=== PATIENT | male | born 1950 | race Two or more races ===

== ENCOUNTER 2020-07-09 16:54 | Inpatient (IN) | payer MEDICARE, OTHER ==
[~2020-07-09] VITALS: Ht 157.5 cm; Wt 81.6 kg
[2020-07-09 17:33] LABS: *BILIRUBIN,URIN NEGATIVE (NEGATIVE); *BLOOD, URINE NEGATIVE (NEGATIVE); *CLARITY,URINE SLIGHTLY CLOUDY (CLEAR); *COLOR,URINE YELLOW (YELLOW); *KETONES,URINE TRACE (NEGATIVE); *UROBILINOGEN,URINE 0.2 E.U./dl (NORMAL); LEUKOCYTE ESTERASE ,URINE 1+ (NEGATIVE); NITRITE, URINE NEGATIVE (NEGATIVE); PH,URINE 5.5 (5.0-8.0); UGLUCOSE NEGATIVE (NEGATIVE)
[2020-07-09 17:39] LABS: *AMPHETAMINE, URINE NEGATIVE (NEGATIVE); *CANNABINOID, URINE NEGATIVE (NEGATIVE); *COCCAINE, URINE NEGATIVE (NEGATIVE); *OPIATE, URINE NEGATIVE (NEGATIVE); *PHENCYCLIDINE SCREEN,URINE NEGATIVE (NEGATIVE)
[2020-07-09] MEDS ORDERED: CHOL10002 PO (17:42)
[2020-07-09] MEDS ORDERED: ACET-73 PO (17:42)
[2020-07-09] MEDS ORDERED: MELA3TAB41 PO (17:42)
[2020-07-09] MEDS ORDERED: ASCO500C18 PO (17:42)
[2020-07-09] MEDS ORDERED: ACET-2154 PO (17:42)
[2020-07-09] MEDS ORDERED: METF-442 PO (17:42)
[2020-07-09] MEDS ORDERED: DOCU100C36 PO (17:42)
[2020-07-09 17:53] LABS: BASOPHILS % (AUTO) 0.6 % (0.0-2.0); EOSINOPHILS # (AUTO) 0.2 K/uL (0.0-0.7); EOSINOPHILS % (AUTO) 2.1 % (0.0-7.0); HEMOGLOBIN 14.6 g/dL (12.5-16.3); LYMPHOCYTES % (AUTO) 22.5 % (20.5-51.5); MEAN CORPUSCULAR HEMOGLOBIN 29.6 uug (23.8-33.4); MEAN CORPUSCULAR HGB CONC 34 g/dL (32.5-36.3); MEAN CORPUSCULAR VOLUME 86.9 fL (73.0-96.2); MONOCYTES # (AUTO) 0.8 K/uL (2.0-10.0); MONOCYTES % (AUTO) 8.7 % (0.0-11.0); NEUTROPHILS # (AUTO) 5.8 K/uL (1.8-8.9); NEUTROPHILS % (AUTO) 66.1 % (38.5-71.5); PLATELET COUNT (AUTO) 280 K/uL (152-348); RED BLOOD CELL COUNT(AUTO) 4.95 MIL/uL (4.06-5.63); WHITE BLOOD COUNT (AUTO) 8.8 K/uL (3.6-10.2)
[2020-07-09 18:02] LABS: CARBON DIOXIDE 25 mmol/L (21-32); CHLORIDE 105 mmol/L (98-107); CREATININE 1.1 mg/dL (0.6-1.3); GLUCOSE 123 mg/dL (74-106); POTASSIUM 3.9 mmol/L (3.5-5.1); UREA NITROGEN, BLOOD 21 mg/dL (7-18)
[2020-07-09 18:08] LABS: ALANINE AMINOTRANSFERASE 18 U/L (16-63); ALKALINE PHOSPHATASE 78 U/L (50-136); ASPARTATE AMINOTRANSFERASE 11 U/L (15-37); BILIRUBIN,DIRECT 0.1 mg/dL (0.0-0.2); BILIRUBIN,TOTAL 0.3 mg/dL (0.2-1.0); TOTAL PROTEIN, SERUM 6.9 g/dL (6.4-8.2)
--- NOTE | 2020-07-09 18:10 | NUR ---
Pt resting in guradger and watching TV. Per pt is medically clear for psych eval. Abbey Swenson notified via telephone.
[2020-07-09 18:12] LABS: ETHANOL < 3 MG/DL (0-0)
[2020-07-09 18:14] LABS: ACETAMINOPHEN < 2.0 ug/mL (10-30)
--- NOTE | 2020-07-09 18:14 | NUR ---
Per Abbey call Art for eval once the COVID-19 results are back.
--- NOTE | 2020-07-09 18:18 | NUR ---
Pt's COVID results are negative, Art contacted via telephone, states he will come in as soon as he can.
--- NOTE | 2020-07-09 18:45 | NUR ---
Pt attempted to elope, code yung called. Pt was escorted back to room 5 by security. Art is here for psych eval.
--- NOTE | 2020-07-09 20:10 | NUR ---
Pt. admitted to MHU room 140A, Dx GD on a 5150 hold, under care of Dr. Jain and Dr. Howell. Belongs List completed. Report given to U nurse Marii.
[2020-07-09 20:37] LABS: BACTERIA,URINE FEW /HPF (NONE SEEN); RBC,URINE 0-3 /HPF (0-3); SQUAMOUS EPITHELIAL CELL,UR NONE SEEN /HPF (NONE SEEN); WBC,URINE 0-3 /HPF (0-3)
[2020-07-09 20:38] LABS: CALCIUM OXALATE CRYSTALS,UR FEW /HPF (NONE SEEN); URINE AMORPHOUS URATE MODERATE /HPF
[2020-07-09] MEDS ORDERED: MAGNESIUM HYDROXIDE 30 ML LIQUID UDC PO PRN (21:00)
[2020-07-09] MEDS ORDERED: MAG HYDROX/AL HYDROX/SIMETH 30 ML LIQUID UDC PO PRN (21:00)
[2020-07-09] MEDS ORDERED: BLOOD SUGAR DIAGNOSTIC 1 EACH STRIP VI ONE (21:00)
--- NOTE | 2020-07-09 21:30 | NUR ---
gps ADMISSION NOTE: AT APPROX. 2009, ADMITTED 70 YEARS OLD MALE FROM [facility] [place] TO [facility] MHU ON A 5150 FOR GD. ACCORDING TO THE HOLD, PATIENT WAS BIB AMBULANCE TO [facility] ER D/T AGGRESSIVE AND AGITATIVE BX. . PATIENT STRIKING OUT, NON COMPLIANT WITH CARE, IMPAIRED JUDGMENT AND POOR INSIGHT AND IMPULSE CONTROL, PT IS UNABLE TO PROVIDE FOR HIMSELF. HIS HOLD WILL BE UP ON AT 1920. UPON ADMISSION, PATIENT IS NOTED A/O X 1. ABLE TO AMBULATE WITH STEADY GAIT. PATIENT REFLECTS WHAT IS WRITTEN IN THE HOLD. POOR INSIGHT AND JUDGMENT IS NOTED INTO HIS ADMISSION TO MHU. PATIENT IS BRAZILIAN SPEAKER. AMHARIC IS LIMITED. HE WAS UNABLE TO SIGN ADMISSION PAPERS. SKIN ASSESSMENT WAS LIMITED D/T PATIENT'S POOR COMPLIANT WITH ASSESSMENT; HOWEVER, APPEARS INTACT EXCEPT FOR DRY SKIN IN BOTH LEGS AND A SMALL ABRASION ON HIS LEFT FOREARM OF APPROX 0.5CM IN DIAMETER. PATIENT WAS GIVEN, IN BRAZILIAN, THE PATIENT'S RIGHT FOR MENTAL HEALTH BOOKLET. ADVISEMENT WAS GIVEN TO PATIENT WELL. HE WAS ALSO INTRODUCE TO RULES AND EXPECTATION IN MHU. PATIENT IS UNDER THE CARE OF SR TAYLOR AND DR SCHAEFER. WILL CONTINUE TO MONITOR Q15 MIN CHECKS.
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
[2020-07-10] MEDS ORDERED: LORAZEPAM 2 MG/1 ML VIAL IM ONE (09:30)
[2020-07-10] MEDS ORDERED: HALOPERIDOL LACTATE 5 MG/1 ML VIAL IM ONE (09:30)
[2020-07-10] MEDS ORDERED: diphenhydrAMINE 50 MG/1 ML VIAL IM ONE (09:30)
--- NOTE | 2020-07-10 10:13 | NUR ---
Received orders for Haldol 5 mg, Ativan 1 mg, Benadryl 25 mg IM once. Security called for assistance. IM administered with no adverse reaction. Patient was educated about reason for medication but he is unable to participate in education. he is alert and oriented to name only. he was cursing at staff during IM administration. Patient remained laying in bed, bed in low and locked position with bed alarm on. patient's environment assessed for safety.
--- NOTE | 2020-07-10 10:28 | NUR ---
CHIQUI Initial Discharge Plan: Patient currently resides at [facility], [facility] ([phone]). Spoke with Farida at the facility who confirmed patient is welcome back upon discharge. Patient's daughter, Rola stated she wants patient to return to [facility]. CHIQUI will continue to work with patient, family, and MD to ensure a safe and proper discharge plan.
--- NOTE | 2020-07-10 10:28 | NUR ---
CHIQUI Family Contact: CHIQUI spoke with patient's daughterRola ([phone]) and discussed treatment and initial discharge plan.
--- NOTE | 2020-07-10 10:30 | NUR ---
Firearms Report: Sheet Metal Shop Foreman completed and submitted a DOJ firearms report for 5150 grave disability certification. A copy of report has been placed in patient chart.
--- NOTE | 2020-07-10 12:12 | NUR ---
patient sleeping in his assigned bed. bed is in low and locked position. respirations are even and unlabored.
[2020-07-10] MEDS ORDERED: ACETAMINOPHEN ES 500 MG TABLET PO SCH (12:45)
[2020-07-10] MEDS ORDERED: ACETAMINOPHEN 325 MG TABLET PO SCH (12:45)
--- NOTE | 2020-07-10 13:00 | NUR ---
FÉLIX UR NOTE: Authorization# [id number] FÉLIX spoke with Corin Blankenship power manager (ph: [phone] fax [phone]) regarding patient's admission. FÉLIX stated that once the psychiatrist meets with the patient Félix will fax the H&P, Medication and Labs, and any progress notes tomorrow morning.
[2020-07-10] MEDS: OLANZAPINE ZYDIS 5 MG TAB.RAPDIS PO SCH (16:45)
--- NOTE | 2020-07-10 16:45 | NUR ---
patient continues to be asleep in assigned bed. respirations are even and unlabored. no signs of respiratory distress noted. 1700 Zyprexa Zydis 2.5 mg PO held.
[2020-07-10] MEDS: METFORMIN HCL 500 MG TABLET PO SCH (17:39)
--- NOTE | 2020-07-10 17:39 | NUR ---
patient is asleep in his assigned bed. respirations are even and unlabored. no signs of respiratory distress noted. 1800 metformin 1000 mg PO held.
[2020-07-10] MEDS: CEphaleXIN 500 MG CAPSULE PO SCH (21:00)
[2020-07-10] MEDS: DIVALPROEX SPRINKLE 125 MG CAP.SPRINK PO SCH (21:00)
[2020-07-11] MEDS: CLONAZEPAM 0.5 MG TABLET PO PRN ×2 (01:30→20:08)
--- NOTE | 2020-07-11 01:36 | NUR ---
GPS: Pt.is anxious at this time. Alert to self only. Confused,disoriented. Reality re-orientation provided. Incontinence care was provided. Quiet environment provided to facilitate sleep. Denied pain when asked. Klonopin 0.5mg given PO for anxiety. Will monitor effectiveness. No aggressive behavior noted at this time. Fall precautions observed.
[2020-07-11 07:46] VITALS: BP 115/68
[2020-07-11] MEDS: CHOLECALCIFEROL 1,000 UNIT TABLET PO SCH (08:45)
[2020-07-11] MEDS: CEphaleXIN 500 MG CAPSULE PO SCH ×2 (08:46→20:08)
[2020-07-11] MEDS: ASCORBIC ACID 500 MG TABLET PO SCH (08:46)
[2020-07-11] MEDS: DIVALPROEX SPRINKLE 125 MG CAP.SPRINK PO SCH ×2 (08:46→20:08)
[2020-07-11] MEDS: DOCUSATE SODIUM 100 MG CAPSULE PO SCH (08:46)
[2020-07-11] MEDS: METFORMIN HCL 500 MG TABLET PO SCH ×2 (08:46→17:50)
[2020-07-11] MEDS: OLANZAPINE ZYDIS 5 MG TAB.RAPDIS PO SCH ×2 (08:47→17:49)
--- NOTE | 2020-07-11 10:20 | NUR ---
CHIQUI UR NOTE: Authorization# [id number] CHIQUI faxed Corin Blankenship adult care manager (ph: [phone] fax [phone]) patient's clinicals including, history and physical, medication and labs.
--- NOTE | 2020-07-11 12:27 | NUR ---
Gps/Director Cpg-Isolative, stayed in his room , sitting at the edge of bed, responding to internal stimuli, Needed encouragement and prompted to take routine meds, chewed all his medications , noted angry affect , and making a fist, irritability noted. . Interacts in Spaniish.
--- NOTE | 2020-07-11 16:00 | NUR ---
Gps/Truck Trailer Final Inspector- Patient had been incontinent of urine , and voiding on the floor, making some trails ,prompted to take routine meds, patient chew his medications. patient kept removing his diaper , speech confused incoherent. Safety emphasized.
[2020-07-11 16:30] VITALS: BP 124/77
[2020-07-11 20:00] VITALS: BP 103/66
[2020-07-12] MEDS: TEMAZEPAM 7.5 MG CAPSULE PO PRN ×2 (01:01→22:41)
[2020-07-12 07:30] VITALS: BP 126/61
[2020-07-12] MEDS: ASCORBIC ACID 500 MG TABLET PO SCH (08:04)
[2020-07-12] MEDS: DIVALPROEX SPRINKLE 125 MG CAP.SPRINK PO SCH ×2 (08:04→20:28)
[2020-07-12] MEDS: METFORMIN HCL 500 MG TABLET PO SCH ×2 (08:04→17:28)
[2020-07-12] MEDS: CEphaleXIN 500 MG CAPSULE PO SCH ×2 (08:04→20:28)
[2020-07-12] MEDS: CHOLECALCIFEROL 1,000 UNIT TABLET PO SCH (08:04)
[2020-07-12] MEDS: DOCUSATE SODIUM 100 MG CAPSULE PO SCH (08:04)
[2020-07-12] MEDS: OLANZAPINE ZYDIS 5 MG TAB.RAPDIS PO SCH ×2 (08:04→17:28)
--- NOTE | 2020-07-12 11:21 | NUR ---
CHIQUI UR NOTE: Authorization# [id number] CHIQUI spoke with Corin Blankenship cyber security manager (ph: [phone] fax [phone]) who stated that the patient is authorized and clinicals review is due Wednesday07/15/20 by fax.
[2020-07-12 16:00] VITALS: BP 127/77
[2020-07-12 20:00] VITALS: BP 134/79
--- NOTE | 2020-07-12 23:09 | NUR ---
GPS/Rn - Patient was received sitting up in preethi chair. Pt was fidgeting and constantly trying to move self out of chair. Noted Patient was very confuse and unable to communicate needs or relate with others. Pt was restless and unable to stay calm. PRN Restoril was given and Pt was assisted to take a shower due to too dirty to be clean in bed. Was a bit cooperative, good shower given and kept clean and dry. Will monitor and safety in place for Q/15mins head count ongoing..
[2020-07-13 07:30] VITALS: BP 121/70
[2020-07-13] MEDS: CEphaleXIN 500 MG CAPSULE PO SCH ×2 (08:42→20:32)
[2020-07-13] MEDS: CHOLECALCIFEROL 1,000 UNIT TABLET PO SCH (08:42)
[2020-07-13] MEDS: OLANZAPINE ZYDIS 5 MG TAB.RAPDIS PO SCH ×2 (08:42→16:31)
[2020-07-13] MEDS: DOCUSATE SODIUM 100 MG CAPSULE PO SCH (08:42)
[2020-07-13] MEDS: METFORMIN HCL 500 MG TABLET PO SCH ×2 (08:42→17:50)
[2020-07-13] MEDS: ASCORBIC ACID 500 MG TABLET PO SCH (08:43)
[2020-07-13] MEDS: DIVALPROEX SPRINKLE 125 MG CAP.SPRINK PO SCH ×2 (08:43→20:32)
[2020-07-13] MEDS: CLONAZEPAM 0.5 MG TABLET PO PRN (09:21)
--- NOTE | 2020-07-13 11:30 | NUR ---
Gps/Stone Product Fabricator- Stayed up in his preethi-chair in the activity room, has bladder incontinence, provided good hygiene. Needed assist with his hygiene.Confused, disoriented, gets fidgety , safety emphasized.
[2020-07-13 15:21] VITALS: BP 120/79
[2020-07-13 20:00] VITALS: BP 132/74
[2020-07-13] MEDS: TEMAZEPAM 7.5 MG CAPSULE PO PRN (22:58)
[2020-07-14 07:30] VITALS: BP 168/92
[2020-07-14] MEDS: METFORMIN HCL 500 MG TABLET PO SCH ×2 (08:10→17:24)
[2020-07-14] MEDS: CHOLECALCIFEROL 1,000 UNIT TABLET PO SCH (08:10)
[2020-07-14] MEDS: OLANZAPINE ZYDIS 5 MG TAB.RAPDIS PO SCH ×2 (08:10→17:24)
[2020-07-14] MEDS: DOCUSATE SODIUM 100 MG CAPSULE PO SCH (08:11)
[2020-07-14] MEDS: CEphaleXIN 500 MG CAPSULE PO SCH ×2 (08:11→20:03)
[2020-07-14] MEDS: DIVALPROEX SPRINKLE 125 MG CAP.SPRINK PO SCH ×2 (08:11→20:03)
[2020-07-14] MEDS: ASCORBIC ACID 500 MG TABLET PO SCH (08:11)
--- NOTE | 2020-07-14 15:07 | NUR ---
Gps/Emergency Planning And Response Manager- Stayed up in his preethi-chair in the activity room, watching TV, monitored closely for safety. Confused, disoriented .monitored needs.Speaks Estonian able to follow simple directions.
[2020-07-14 16:00] VITALS: BP 130/68
[2020-07-14 20:00] VITALS: BP 116/59
[2020-07-14] MEDS: TEMAZEPAM 7.5 MG CAPSULE PO PRN (21:58)
[2020-07-15 07:30] VITALS: BP 117/66
[2020-07-15] MEDS: CLONAZEPAM 0.5 MG TABLET PO PRN ×3 (08:06→21:50)
[2020-07-15] MEDS: CEphaleXIN 500 MG CAPSULE PO SCH (08:44)
[2020-07-15] MEDS: CHOLECALCIFEROL 1,000 UNIT TABLET PO SCH (08:44)
[2020-07-15] MEDS: DOCUSATE SODIUM 100 MG CAPSULE PO SCH (08:44)
[2020-07-15] MEDS: OLANZAPINE ZYDIS 5 MG TAB.RAPDIS PO SCH ×2 (08:44→16:45)
[2020-07-15] MEDS: ASCORBIC ACID 500 MG TABLET PO SCH (08:44)
[2020-07-15] MEDS: DIVALPROEX SPRINKLE 125 MG CAP.SPRINK PO SCH ×2 (08:45→20:37)
[2020-07-15] MEDS: METFORMIN HCL 500 MG TABLET PO SCH ×2 (08:45→17:59)
--- NOTE | 2020-07-15 13:41 | NUR ---
UR NOTE: CHIQUI faxed a clinical to [facility] with attention to Corin Blankenship arts manager (ph: [phone]) to the fax number: [phone].
[2020-07-15] MEDS: ACETAMINOPHEN 325 MG TABLET PO PRN (14:36)
[2020-07-15 15:31] VITALS: BP 142/70
[2020-07-15 20:16] VITALS: BP 123/87
[2020-07-16] MEDS: CLONAZEPAM 0.5 MG TABLET PO PRN ×2 (08:05→17:02)
[2020-07-16 08:30] VITALS: BP 108/60
[2020-07-16] MEDS: CHOLECALCIFEROL 1,000 UNIT TABLET PO SCH (09:29)
[2020-07-16] MEDS: OLANZAPINE ZYDIS 5 MG TAB.RAPDIS PO SCH (09:29)
[2020-07-16] MEDS: DOCUSATE SODIUM 100 MG CAPSULE PO SCH (09:29)
[2020-07-16] MEDS: DIVALPROEX SPRINKLE 125 MG CAP.SPRINK PO SCH ×2 (09:29→21:36)
[2020-07-16] MEDS: ASCORBIC ACID 500 MG TABLET PO SCH (09:29)
--- NOTE | 2020-07-16 09:41 | NUR ---
UR NOTE: CHIQUI called [facility] welfare case worker Corin Couch (ph: [phone]) and inquired about whether or not the pt is authorized to remain in the hospital. She stated that she is still reviewing the clinical and would like the most updated note from yesterday faxed to her.
--- NOTE | 2020-07-16 09:44 | NUR ---
UR NOTE: CHIQUI faxed a clinical to [facility] with attention to Corin Blankenship manager site (ph: [phone]) to the fax number: [phone].
[2020-07-16] MEDS: METFORMIN HCL 500 MG TABLET PO SCH ×2 (10:46→17:02)
[2020-07-16 16:34] VITALS: BP 141/71
[2020-07-16] MEDS: ACETAMINOPHEN 325 MG TABLET PO PRN (17:02)
--- NOTE | 2020-07-16 17:50 | NUR ---
GPS: Nursing Notes: Destructive Behavior to Others: Patient is awake and responding his name, poor anger management, confused, disoriented, disorganized, resistant with nursing care, striking out when assisting him with ADL's, labile, unpredictable behavior, poor insight, impaired judgment, verbal abusive at times, unkempt appearance, unable to formulate a viable plan for self care, continue with treatment plan.
[2020-07-16 20:00] VITALS: BP 119/67
[2020-07-16] MEDS: OLANZAPINE 2.5 MG TABLET PO SCH (21:36)
[2020-07-17 07:30] VITALS: BP 154/76
[2020-07-17] MEDS: METFORMIN HCL 500 MG TABLET PO SCH ×2 (08:41→17:01)
[2020-07-17] MEDS: DOCUSATE SODIUM 100 MG CAPSULE PO SCH (08:41)
[2020-07-17] MEDS: DIVALPROEX SPRINKLE 125 MG CAP.SPRINK PO SCH ×2 (08:41→21:32)
[2020-07-17] MEDS: ASCORBIC ACID 500 MG TABLET PO SCH (08:41)
[2020-07-17] MEDS: CHOLECALCIFEROL 1,000 UNIT TABLET PO SCH (08:41)
[2020-07-17] MEDS ORDERED: OLANZAPINE ZYDIS 5 MG TAB.RAPDIS PO SCH (09:00)
[2020-07-17 16:08] VITALS: BP 132/76
--- NOTE | 2020-07-17 17:52 | NUR ---
Received patient 70-year-old male who is confused and disorganized. He is patient calm, but appears to be disoriented and confused . His mood is euthymic patient sitting in the dining room and seen smiling, trying to work on some activity, and enjoys music and dancing . Affect labile. Thought process, circumstantial. Though content reveals disorganized thoughts and he is unable to provide self-care including food, clothes and group home, patient assisted with ADL, patient unable to have sensical conversation due to poor memory , patient was redirectable and been calm watching TV in the Day room and able to eat his meals by himself, no sign of any distress at this time, monitored [id number] for safety.
[2020-07-17 20:00] VITALS: BP 136/76
[2020-07-17] MEDS: OLANZAPINE 2.5 MG TABLET PO SCH (21:32)
[2020-07-17] MEDS: CLONAZEPAM 0.5 MG TABLET PO PRN (21:32)
[2020-07-18 07:30] VITALS: BP 145/84
[2020-07-18] MEDS: METFORMIN HCL 500 MG TABLET PO SCH ×2 (09:28→17:05)
[2020-07-18] MEDS: DOCUSATE SODIUM 100 MG CAPSULE PO SCH (09:28)
[2020-07-18] MEDS: ASCORBIC ACID 500 MG TABLET PO SCH (09:28)
[2020-07-18] MEDS: CHOLECALCIFEROL 1,000 UNIT TABLET PO SCH (09:28)
[2020-07-18] MEDS: DIVALPROEX SPRINKLE 125 MG CAP.SPRINK PO SCH ×2 (09:29→17:06)
[2020-07-18] MEDS: OLANZAPINE ZYDIS 5 MG TAB.RAPDIS PO SCH (09:29)
--- NOTE | 2020-07-18 11:28 | NUR ---
Family Contact: SW spoke with patient's daughter, Rola ([phone]), and left a voicemail stating that the pt was going to be discharged back to [facility] the following day.
--- NOTE | 2020-07-18 11:29 | NUR ---
SNF Contact: CHIQUI faxed updated notes to [facility] with attention to Farida to the fax number: [phone].
--- NOTE | 2020-07-18 14:16 | NUR ---
DR TAYLOR MADE HIS ROUND THRU ZOOM, SEEN THE PATIENT. NOTIFY MD THAT PATIENT COMBATIVE TOWARDS STAFF, MD HAS INCREASE DEPAKOTE FROM [facility] TO TID.
[2020-07-18 16:00] VITALS: BP 116/69
--- NOTE | 2020-07-18 17:36 | NUR ---
PATIENT AWAKE BUT WITH CONFUSION, PATIENT IMPULSIVE, HAS EPISODE OF SWINGING AT STAFF, AND COMBATIVE DURING CARE. PATIENT WAS KEPT CLEAN AND DRY, ASSISTED WITH MEALS, AND FLUIDS, CONT TO MONITOR.
[2020-07-18 20:00] VITALS: BP 118/67
[2020-07-18] MEDS ORDERED: OLANZAPINE 5 MG TABLET PO SCH (21:00)
[2020-07-18] MEDS: TEMAZEPAM 7.5 MG CAPSULE PO PRN (22:16)
[2020-07-19] MEDS: ASCORBIC ACID 500 MG TABLET PO SCH (08:13)
[2020-07-19] MEDS: OLANZAPINE ZYDIS 5 MG TAB.RAPDIS PO SCH (08:13)
[2020-07-19] MEDS: DOCUSATE SODIUM 100 MG CAPSULE PO SCH (08:13)
[2020-07-19] MEDS: DIVALPROEX SPRINKLE 125 MG CAP.SPRINK PO SCH (08:13)
[2020-07-19] MEDS: CHOLECALCIFEROL 1,000 UNIT TABLET PO SCH (08:13)
[2020-07-19] MEDS: METFORMIN HCL 500 MG TABLET PO SCH (08:13)
--- NOTE | 2020-07-19 08:46 | NUR ---
DISCHARGE NOTE: Pt will be discharged to [facility] ([facility]) located at [address] [place] [id number]; ([phone]). Pt will be transported via the facility pickup around 10am. Pt does not have family for the SW to contact. Upon discharge, the pt appears to be in a depressed mood and presents with a distressed affect. Pt was alert and oriented x2 (place and self). Pt denies both suicidal and homicidal ideation as well as auditory and visual hallucinations. Pt will be under the care of his psychiatrist, Dr. Preciado, located at [address] [place] [address]; and grain combine driver, Dr. Burns, located at [address] [place] [address] [address], [place] [address]; . Pt signed the Choice of Vendor and the multidisciplinary exit care form was done, printed, signed, and given to the patient.
--- NOTE | 2020-07-19 11:15 | NUR ---
pt left unit on w/c accompanied by WAREHOUSE MAN to lease purchase driver Ishmael, waiting in the lobby. Pt denies pain or discomfort. no aggressive or combative behavior noted. Denies Si. Left with all noted paperwork and belongings. In no acute distress.
== END 2020-07-19 11:16 | DRG 885 ==
LOC: ER 16:57 → GPS 19:52
PROVIDERS: ADMIT Psychiatry & Neurology Psychiatry; ATTEND Nurse Practitioner Acute Care
DX: F29 Unspecified psychosis not due to a substance or known physiological condition (principal); N39.0 Urinary tract infection, site not specified; F23 Brief psychotic disorder; Z91.81 History of falling; E11.9 Type 2 diabetes mellitus without complications; F41.9 Anxiety disorder, unspecified; Z87.440 Personal history of urinary (tract) infections; Z79.84 Long term (current) use of oral hypoglycemic drugs; R26.89 Other abnormalities of gait and mobility; Z73.6 Limitation of activities due to disability; F25.9 Schizoaffective disorder, unspecified; F31.9 Bipolar disorder, unspecified; N40.1 Benign prostatic hyperplasia with lower urinary tract symptoms; M62.81 Muscle weakness (generalized)
CPT/HCPCS: 36415; 80164; 85025; 93005; A4663; G0480; J1200; J1630; J2060

== ENCOUNTER 2020-08-13 12:19 | Inpatient (IN) | payer MEDICARE, OTHER ==
[~2020-08-13] VITALS: Ht 162.6 cm; Wt 74.9 kg
[~2020-08-13 12:19] MED LIST: ACET-2154 PO; ACET-73 PO; ASCO500C18 PO; CHOL10002 PO; DOCU100C36 PO; METF-442 PO
[2020-08-13] MEDS ORDERED: DIVA250T4 PO (12:59)
[2020-08-13] MEDS ORDERED: LORA-258 PO (12:59)
[2020-08-13] MEDS ORDERED: MULT-1023 PO (12:59)
[2020-08-13] MEDS ORDERED: LORAZEPAM 2 MG/1 ML VIAL IM ONE (13:30)
[2020-08-13] MEDS ORDERED: HALOPERIDOL LACTATE 5 MG/1 ML VIAL IM ONE (13:30)
[2020-08-13] MEDS ORDERED: diphenhydrAMINE 50 MG/1 ML VIAL IM ONE (13:30)
[2020-08-13 13:35] LABS: BASOPHILS # (AUTO) 0.2 K/uL (0.0-8.0); BASOPHILS % (AUTO) 2.5 % (0.0-2.0); EOSINOPHILS # (AUTO) 0.1 K/uL (0.0-0.7); EOSINOPHILS % (AUTO) 1.6 % (0.0-7.0); HEMATOCRIT 45.3 % (36.7-47.1); LYMPHOCYTES # (AUTO) 0.9 K/uL (20.0-40.0); LYMPHOCYTES % (AUTO) 14.1 % (20.5-51.5); MEAN CORPUSCULAR HEMOGLOBIN 29.7 uug (23.8-33.4); MEAN CORPUSCULAR HGB CONC 33 g/dL (32.5-36.3); MEAN CORPUSCULAR VOLUME 89.9 fL (73.0-96.2); MONOCYTES # (AUTO) 0.5 K/uL (2.0-10.0); MONOCYTES % (AUTO) 7.8 % (0.0-11.0); NEUTROPHILS # (AUTO) 4.5 K/uL (1.8-8.9); PLATELET COUNT (AUTO) 218 K/uL (152-348); RED BLOOD CELL COUNT(AUTO) 5.04 MIL/uL (4.06-5.63); WHITE BLOOD COUNT (AUTO) 6.1 K/uL (3.6-10.2)
--- NOTE | 2020-08-13 13:35 | NUR ---
INCREASING AGITATION AND COMBATIVENESS. MEDICATED FOR RESTLESSNESS PER MD ORDER.
[2020-08-13] MEDS ORDERED: diphenhydrAMINE 50 MG/1 ML VIAL ONE (13:37)
[2020-08-13] MEDS ORDERED: HALOPERIDOL LACTATE 5 MG/1 ML VIAL ONE (13:37)
[2020-08-13] MEDS ORDERED: LORAZEPAM 2 MG/1 ML VIAL ONE (13:37)
[2020-08-13 13:51] LABS: ALANINE AMINOTRANSFERASE 33 U/L (16-63); ALKALINE PHOSPHATASE 59 U/L (50-136); ASPARTATE AMINOTRANSFERASE 22 U/L (15-37); BILIRUBIN,DIRECT 0.2 mg/dL (0.0-0.2); BILIRUBIN,TOTAL 0.5 mg/dL (0.2-1.0); CARBON DIOXIDE 25 mmol/L (21-32); CHLORIDE 102 mmol/L (98-107); CREATININE 0.8 mg/dL (0.6-1.3); GLUCOSE 85 mg/dL (74-106); POTASSIUM 3.6 mmol/L (3.5-5.1); TOTAL PROTEIN, SERUM 7.5 g/dL (6.4-8.2); UREA NITROGEN, BLOOD 14 mg/dL (7-18)
[2020-08-13 13:56] LABS: ETHANOL < 3 MG/DL (0-0)
[2020-08-13 14:26] LABS: ACETAMINOPHEN < 2.0 ug/mL (10-30)
--- NOTE | 2020-08-13 14:41 | NUR ---
BACK FROM RADIOLOGY - RESTING QUIETLY AT THIS TIME.
[2020-08-13] MEDS ORDERED: BLOOD SUGAR DIAGNOSTIC 1 EACH STRIP VI ONE (17:15)
[2020-08-13] MEDS ORDERED: MAGNESIUM HYDROXIDE 30 ML LIQUID UDC PO PRN (17:15)
[2020-08-13] MEDS ORDERED: MAG HYDROX/AL HYDROX/SIMETH 30 ML LIQUID UDC PO PRN (17:15)
[2020-08-13 17:30] VITALS: BP 144/75
--- NOTE | 2020-08-13 18:07 | NUR ---
ADMISSION NOTES : ADMITTING THIS 70 Y MALE COMING FROM EMERGENCY ROOM ON 5150 HOLD FOR GRAVELY DISABLED, PER HOLD PATIENT WAS COMBATIVE, AGGRESSIVE TOWARD HIS CAREGIVERS IN THE SNF, PATIENT WAS UNABLE TO REDIRECT PER HOLD STATES, PATIENT ARRIVES THE UNIT ON A GURNEY ASLEEP, CONOR AROUSABLE, PATIENT UNABLE TO SIGN HIS DOCUMENTS DUE TO MENTAL STATUS, PATIENT WAS TRANSFERRED TO A OREN CHAIR FOR SAFETY AND WAS COMFORTABLY ASSISTED , PATIENT UNABLE TO EAT HIS DINNER AND WAS SEDATED FROM EMERGENCY ROOM WHICH HE RECEIVE EMERGENCY IM SHOT AT AROUND 1:30PM, PATIENT HAS A VALID HOLD AND WAS ADVISED, ALSO STATES THAT HE WAS SPEAKING ONLY , AND HAS HISTORY OF SENILE DEMENTIA,CALLED AND SPOKE WITH DR. OLSEN AND REGARDING THE ADMISSION, ADMISSION ORDERS WAS MADE, READ BACK ORDERS AND CARRIED OUT, VITAL SIGN WAS ASSESSED WITH BP 144/75, TEMP 97.5, P 59, RESP 18, OXYGEN SAT AT ROOM AIR 96 AND 0/10 , NO PAIN NO SIGN OF ANY DISTRESS AT THIS TIME, WILL PUT ON [id number] MONITORING FOR SAFETY, NO OPTIMIZATION MANAGER ON THE RECORDS WILL FOLLOW UP
--- NOTE | 2020-08-13 19:22 | NUR ---
PATIENT STILL ASLEEP ON HIS CHAIR, NO SIGN OF ANY DISTRESS, ENDORSED TO NEXT SHIFT
[2020-08-13] MEDS ORDERED: ACETAMINOPHEN 325 MG TABLET PO SCH (20:30)
[2020-08-13 20:37] VITALS: BP 129/75
[2020-08-13] MEDS: ZOLPIDEM 5 MG TABLET PO PRN (20:59)
[2020-08-13] MEDS: LORAZEPAM 0.5 MG TABLET PO PRN ×2 (23:09→23:27)
[2020-08-14 07:30] VITALS: BP 114/60
[2020-08-14 08:09] LABS: *BILIRUBIN,URIN NEGATIVE (NEGATIVE); *BLOOD, URINE 1+ (NEGATIVE); *CLARITY,URINE CLOUDY (CLEAR); *COLOR,URINE YELLOW (YELLOW); *KETONES,URINE 1+ (NEGATIVE); LEUKOCYTE ESTERASE ,URINE 1+ (NEGATIVE); NITRITE, URINE POSITIVE (NEGATIVE); UGLUCOSE NEGATIVE (NEGATIVE)
[2020-08-14] MEDS: CHOLECALCIFEROL 1,000 UNIT TABLET PO SCH (08:14)
[2020-08-14] MEDS: DOCUSATE SODIUM 100 MG CAPSULE PO SCH (08:14)
[2020-08-14] MEDS: MULTIVIT, IRON, MIN NO. 8, FA TABLET PO SCH (08:14)
[2020-08-14] MEDS: ASCORBIC ACID 500 MG TABLET PO SCH (08:14)
[2020-08-14] MEDS: METFORMIN HCL 500 MG TABLET PO SCH ×2 (08:14→17:22)
[2020-08-14 08:50] LABS: *AMPHETAMINE, URINE NEGATIVE (NEGATIVE); *CANNABINOID, URINE NEGATIVE (NEGATIVE); *COCCAINE, URINE NEGATIVE (NEGATIVE); *OPIATE, URINE NEGATIVE (NEGATIVE); *PHENCYCLIDINE SCREEN,URINE NEGATIVE (NEGATIVE)
[2020-08-14 08:55] LABS: BILIRUBIN,TOTAL 0.4 mg/dL (0.2-1.0); CREATININE 0.9 mg/dL (0.6-1.3); POTASSIUM 4.2 mmol/L (3.5-5.1)
--- NOTE | 2020-08-14 11:44 | NUR ---
Facility contact. SW contacted Farida, admission coordinator ([phone]), [facility] regarding if the facility would accept the pt after discharging from [facility]. The facility will not accept the patient back due to his past behavior and incident striking out at staff.
--- NOTE | 2020-08-14 11:50 | NUR ---
Family contact: SW contacted the daughter, Rola ([phone]) regarding his assessment and confirming any changes with the demographics. The daughter states no other changes made in the pt information. The daughter states he had a similar episode that got the pt admitted back to [facility] by striking out staff. SW also informed the daughter that the facility, [facility] ([phone]), Farida, admission coordinator informed the SW that they will not accept the patient back after he is cleared and discharged from the hospital due to his history of striking out at staff. The daughter states she will update the and [facility] as she will make arrangements to find another facility to accept the patient. SW also suggested additional resources with retirement facilities near the hospital. The daughter declined services as she wants him closer to where they reside.
--- NOTE | 2020-08-14 14:19 | NUR ---
Initial discharge plan: Pt currently resides at [facility] ([facility]) located at [address] [place] [address] ([phone]). Per Farida, campaign coordinator, [facility] ([phone]), the pt cannot return to the facility. CHIQUI spoke with the patient's daughter, Rola stated she will make arrangements to find another facility closer to where they reside. The daughter will update and inform the SW and hospital. CHIQUI will continue to work with patient, family, and MD to ensure a safe and proper discharge.
[2020-08-14] MEDS: CEphaleXIN 500 MG CAPSULE PO SCH ×2 (15:18→21:50)
[2020-08-14 16:00] VITALS: BP 137/74
--- NOTE | 2020-08-14 16:00 | NUR ---
Firearms Report: Low Altitude Air Defense Gunner completed and submitted a DOJ firearms report for 5150 grave disability certification. A copy of report has been placed in patient chart.
[2020-08-14 16:48] LABS: BACTERIA,URINE FEW /HPF (NONE SEEN); SQUAMOUS EPITHELIAL CELL,UR FEW /HPF (NONE SEEN); WBC,URINE 50-80 /HPF (0-3)
[2020-08-14 20:00] VITALS: BP 152/91
[2020-08-14] MEDS: OLANZAPINE 2.5 MG TABLET PO SCH (20:24)
[2020-08-14] MEDS: DIVALPROEX 250 MG TABLET.DR PO SCH (20:24)
[2020-08-14] MEDS: ZOLPIDEM 5 MG TABLET PO PRN (21:50)
[2020-08-15] MEDS: CEphaleXIN 500 MG CAPSULE PO SCH ×3 (05:56→21:51)
--- NOTE | 2020-08-15 06:50 | NUR ---
GPS: Pt.slept 5 hrs.last night. Remains confused,disoriented and disorganized. Less combative/resistive during incontinence care. Fall precautions observed. No adverse reactions noted from atb. therapy. Fluids pat.fairly.
[2020-08-15 07:30] VITALS: BP 94/55
[2020-08-15] MEDS: METFORMIN HCL 500 MG TABLET PO SCH ×2 (08:20→16:52)
[2020-08-15] MEDS: DIVALPROEX 250 MG TABLET.DR PO SCH ×3 (08:20→16:52)
[2020-08-15] MEDS: MULTIVIT, IRON, MIN NO. 8, FA TABLET PO SCH (08:21)
[2020-08-15] MEDS: ASCORBIC ACID 500 MG TABLET PO SCH (08:21)
[2020-08-15] MEDS: CHOLECALCIFEROL 1,000 UNIT TABLET PO SCH (08:21)
[2020-08-15] MEDS: DOCUSATE SODIUM 100 MG CAPSULE PO SCH (08:22)
[2020-08-15] MEDS: LORAZEPAM 0.5 MG TABLET PO PRN (09:46)
--- NOTE | 2020-08-15 15:00 | NUR ---
Gps/Lamination Builder- Stayed up in his preethi-chair by the Nurses station , was assisted with his meals, not initiating to feed self. Routine meds. was administered crushed with pudding. Safety reviewed emphasized. Seen by Kevin this am.
[2020-08-15 16:00] VITALS: BP 129/60
[2020-08-15 20:00] VITALS: BP 126/53
[2020-08-15] MEDS: OLANZAPINE 2.5 MG TABLET PO SCH (20:05)
[2020-08-15] MEDS: ZOLPIDEM 5 MG TABLET PO PRN (21:51)
[2020-08-16] MEDS: CEphaleXIN 500 MG CAPSULE PO SCH ×3 (06:20→21:23)
[2020-08-16 07:30] VITALS: BP 129/76
[2020-08-16] MEDS: DOCUSATE SODIUM 100 MG CAPSULE PO SCH (09:28)
[2020-08-16] MEDS: METFORMIN HCL 500 MG TABLET PO SCH ×2 (09:28→17:09)
[2020-08-16] MEDS: MULTIVIT, IRON, MIN NO. 8, FA TABLET PO SCH (09:28)
[2020-08-16] MEDS: ASCORBIC ACID 500 MG TABLET PO SCH (09:28)
[2020-08-16] MEDS: DIVALPROEX 250 MG TABLET.DR PO SCH ×3 (09:28→17:09)
[2020-08-16] MEDS: CHOLECALCIFEROL 1,000 UNIT TABLET PO SCH (09:32)
--- NOTE | 2020-08-16 12:35 | NUR ---
SNF Referral: SW faxed a referral to [facility] with attn to Rj and YOGI to the fax number: [phone] and to [facility] with attn to Flaquita to the fax number: [phone].
[2020-08-16] MEDS: LORAZEPAM 0.5 MG TABLET PO PRN (15:03)
--- NOTE | 2020-08-16 15:10 | NUR ---
SNF Contact: SW received confirmation from YOGI ([phone]) from [facility] and Lamine ([phone]) from [facility] that the pt was accepted to their facilities.
--- NOTE | 2020-08-16 15:34 | NUR ---
Family contact: CHIQUI contacted the daughter, Rola ([phone]), and discussed that the pt was accepted to two facilities called [facility] and [facility]. Pts daughter inquired about the process of becoming DPOA and CHIQUI explained it to her so that she can accomplish that once the pt is released. She stated that she wanted to be informed when the pt is discharging.
[2020-08-16 16:00] VITALS: BP 128/91
--- NOTE | 2020-08-16 18:00 | NUR ---
Gps/Cfd Engineer- Fed self ind. after set up with finger food . remains up in his preethi-chair , safety reviewed and emphasized.
[2020-08-16 20:00] VITALS: BP 136/69
[2020-08-16] MEDS: OLANZAPINE 2.5 MG TABLET PO SCH (20:35)
[2020-08-16] MEDS: ZOLPIDEM 5 MG TABLET PO PRN (20:39)
[2020-08-17] MEDS: CEphaleXIN 500 MG CAPSULE PO SCH ×3 (06:17→21:06)
--- NOTE | 2020-08-17 06:45 | NUR ---
Slept 5 hours. Calm, cooperative and compliant to plan of care.
[2020-08-17 07:55] VITALS: BP 133/64
[2020-08-17] MEDS: METFORMIN HCL 500 MG TABLET PO SCH ×2 (09:17→17:37)
[2020-08-17] MEDS: ASCORBIC ACID 500 MG TABLET PO SCH (09:17)
[2020-08-17] MEDS: CHOLECALCIFEROL 1,000 UNIT TABLET PO SCH (09:17)
[2020-08-17] MEDS: LORAZEPAM 0.5 MG TABLET PO PRN ×2 (09:17→16:30)
[2020-08-17] MEDS: DOCUSATE SODIUM 100 MG CAPSULE PO SCH (09:18)
[2020-08-17] MEDS: MULTIVIT, IRON, MIN NO. 8, FA TABLET PO SCH (09:18)
[2020-08-17] MEDS: DIVALPROEX 250 MG TABLET.DR PO SCH ×3 (09:18→16:30)
[2020-08-17 16:29] VITALS: BP 118/58
[2020-08-17] MEDS: OLANZAPINE 2.5 MG TABLET PO SCH (20:39)
[2020-08-17 20:46] VITALS: BP 125/61
--- NOTE | 2020-08-18 06:20 | NUR ---
Slept 6.30 hours with no problems.
[2020-08-18] MEDS: CEphaleXIN 500 MG CAPSULE PO SCH ×3 (06:35→22:04)
[2020-08-18 07:30] VITALS: BP 128/69
[2020-08-18] MEDS: DOCUSATE SODIUM 100 MG CAPSULE PO SCH (08:31)
[2020-08-18] MEDS: MULTIVIT, IRON, MIN NO. 8, FA TABLET PO SCH (08:31)
[2020-08-18] MEDS: LORAZEPAM 0.5 MG TABLET PO PRN ×2 (08:31→15:09)
[2020-08-18] MEDS: CHOLECALCIFEROL 1,000 UNIT TABLET PO SCH (08:31)
[2020-08-18] MEDS: METFORMIN HCL 500 MG TABLET PO SCH ×2 (08:31→18:00)
[2020-08-18] MEDS: DIVALPROEX 250 MG TABLET.DR PO SCH ×3 (08:32→16:29)
[2020-08-18] MEDS: ASCORBIC ACID 500 MG TABLET PO SCH (08:32)
[2020-08-18] MEDS: ACETAMINOPHEN 325 MG TABLET PO PRN (15:09)
[2020-08-18 15:50] VITALS: BP 128/74
[2020-08-18 20:00] VITALS: BP 127/62
[2020-08-18] MEDS: OLANZAPINE 2.5 MG TABLET PO SCH (20:32)
[2020-08-19] MEDS: ZOLPIDEM 5 MG TABLET PO PRN ×2 (00:51→22:02)
[2020-08-19] MEDS: CEphaleXIN 500 MG CAPSULE PO SCH ×3 (05:58→22:01)
--- NOTE | 2020-08-19 06:51 | NUR ---
Slept 3.15 hours. Stayed mostly in the nurses station.
[2020-08-19 07:30] VITALS: BP 137/60
[2020-08-19] MEDS: METFORMIN HCL 500 MG TABLET PO SCH ×2 (09:22→17:36)
[2020-08-19] MEDS: DOCUSATE SODIUM 100 MG CAPSULE PO SCH (09:22)
[2020-08-19] MEDS: CHOLECALCIFEROL 1,000 UNIT TABLET PO SCH (09:22)
[2020-08-19] MEDS: DIVALPROEX 250 MG TABLET.DR PO SCH ×3 (09:23→16:42)
[2020-08-19] MEDS: ASCORBIC ACID 500 MG TABLET PO SCH (09:23)
[2020-08-19] MEDS: MULTIVIT, IRON, MIN NO. 8, FA TABLET PO SCH (09:24)
[2020-08-19] MEDS: ACETAMINOPHEN 325 MG TABLET PO PRN (12:13)
[2020-08-19] MEDS: LORAZEPAM 0.5 MG TABLET PO PRN (12:13)
[2020-08-19 15:23] VITALS: BP 109/62
[2020-08-19 20:00] VITALS: BP 125/63
[2020-08-19] MEDS: OLANZAPINE 2.5 MG TABLET PO SCH (20:01)
[2020-08-20] MEDS: CEphaleXIN 500 MG CAPSULE PO SCH ×3 (06:01→21:29)
[2020-08-20 07:30] VITALS: BP 123/63
[2020-08-20] MEDS: ASCORBIC ACID 500 MG TABLET PO SCH (09:57)
[2020-08-20] MEDS: METFORMIN HCL 500 MG TABLET PO SCH ×2 (09:57→17:17)
[2020-08-20] MEDS: CHOLECALCIFEROL 1,000 UNIT TABLET PO SCH (09:57)
[2020-08-20] MEDS: DIVALPROEX 250 MG TABLET.DR PO SCH ×3 (09:57→16:27)
[2020-08-20] MEDS: MULTIVIT, IRON, MIN NO. 8, FA TABLET PO SCH (09:57)
[2020-08-20] MEDS: DOCUSATE SODIUM 100 MG CAPSULE PO SCH (09:57)
--- NOTE | 2020-08-20 14:39 | NUR ---
CHIQUI PC Hearing: Patient had probable cause hearing today and it was upheld for grave disability.
[2020-08-20 15:43] VITALS: BP 128/71
[2020-08-20 20:00] VITALS: BP 128/72
[2020-08-20] MEDS: OLANZAPINE 2.5 MG TABLET PO SCH (20:03)
[2020-08-20] MEDS: ZOLPIDEM 5 MG TABLET PO PRN (21:31)
[2020-08-20] MEDS: LORAZEPAM 0.5 MG TABLET PO PRN (22:42)
--- NOTE | 2020-08-20 22:42 | NUR ---
GPS: Pt.is anxious,restless and keeps attempting to climb out of bed. Has poor safety awareness due to mental condition. Placed on a preethi-chair in front of nurses station for close observation/safety. Sleeping pill given earlier was ineffective. Re-directed frequently. Ativan 0.5mg given PO for increased anxiety and restlessness. Will monitor effectiveness. Incontinence care provided. No facial grimacing of pain observed. Confused and disoriented.
[2020-08-21] MEDS: CEphaleXIN 500 MG CAPSULE PO SCH (06:29)
[2020-08-21 07:30] VITALS: BP 105/51
[2020-08-21] MEDS: DIVALPROEX 250 MG TABLET.DR PO SCH ×3 (08:20→16:04)
[2020-08-21] MEDS: MULTIVIT, IRON, MIN NO. 8, FA TABLET PO SCH (08:20)
[2020-08-21] MEDS: ASCORBIC ACID 500 MG TABLET PO SCH (08:20)
[2020-08-21] MEDS: DOCUSATE SODIUM 100 MG CAPSULE PO SCH (08:21)
[2020-08-21] MEDS: METFORMIN HCL 500 MG TABLET PO SCH ×2 (08:21→17:00)
[2020-08-21] MEDS: CHOLECALCIFEROL 1,000 UNIT TABLET PO SCH (08:22)
--- NOTE | 2020-08-21 12:40 | NUR ---
received patient AOx1, patient calm cooperative, compliant with medication, denies SI and HI, patient VS WNL, pain meds given as needed, patient no sign of distress
[2020-08-21 16:00] VITALS: BP 120/68
--- NOTE | 2020-08-21 17:56 | NUR ---
seen and examined by Dr. Barger via telehealth, patient disoriented and confused, making non sensical remarks, poor insights, patient medication needed to be crushed , Dr. barger ordered to change depakote to depakote sprinkle , monitored [id number] for safety no sign of any distress at this time
[2020-08-21 19:51] VITALS: BP 124/62
[2020-08-21] MEDS: OLANZAPINE 2.5 MG TABLET PO SCH (20:29)
--- NOTE | 2020-08-22 05:38 | NUR ---
Received patient in his preethi chair, Citizen [place] speaking, hyperverbal, med compliant, interacts with staff, patient has poor insight and poor judgement. Patient will remain in a psych facility for further evaluation.
--- NOTE | 2020-08-22 07:13 | NUR ---
Received patient AOx3-4, patient calm, cooperative, compliant with medications, denies SI and HI, patient free of injury , assisted with ADLS,monitored q15 minutes
[2020-08-22 07:30] VITALS: BP 130/50
[2020-08-22] MEDS: CHOLECALCIFEROL 1,000 UNIT TABLET PO SCH (08:20)
[2020-08-22] MEDS: METFORMIN HCL 500 MG TABLET PO SCH ×2 (08:20→17:04)
[2020-08-22] MEDS: DIVALPROEX SPRINKLE 125 MG CAP.SPRINK PO SCH ×3 (08:20→16:38)
[2020-08-22] MEDS: ASCORBIC ACID 500 MG TABLET PO SCH (08:20)
[2020-08-22] MEDS: DOCUSATE SODIUM 100 MG CAPSULE PO SCH (08:20)
[2020-08-22] MEDS: MULTIVIT, IRON, MIN NO. 8, FA TABLET PO SCH (08:21)
--- NOTE | 2020-08-22 10:25 | NUR ---
SW Family Contact: This SW contacted patient's daughter Rola ([phone]) and stated pt will be discharged tomorrow to [facility] and provided information. She is aware and agreeable.
[2020-08-22] MEDS: LORAZEPAM 0.5 MG TABLET PO PRN ×2 (12:00→23:34)
[2020-08-22 15:58] VITALS: BP 133/63
--- NOTE | 2020-08-22 17:35 | NUR ---
patient calm, cooperative, ate his dinner, monitored for safety, assisted with ADL, no sign of distress , will continue monitor
[2020-08-22 20:00] VITALS: BP 116/64
[2020-08-22] MEDS: OLANZAPINE 2.5 MG TABLET PO SCH (20:46)
[2020-08-22] MEDS: ZOLPIDEM 5 MG TABLET PO PRN (21:42)
--- NOTE | 2020-08-22 23:37 | NUR ---
patient is very agitated,banging on the table and screaming at staff. ativan 0.5 mg po given for agitation.
--- NOTE | 2020-08-23 06:14 | NUR ---
GPS: Remain calm and cooperative, compliant with medications, denies SI and HI, patient free of injury , assisted with ADLS,monitored q15 minutes, slept 5.45 hrs through the night.
[2020-08-23 07:30] VITALS: BP 113/55
--- NOTE | 2020-08-23 08:11 | NUR ---
Discharge Note: Patient will be discharged to [facility] facility, [facility] [place] [address] ([phone]) via Ambulance transportation at 2:00pm today. Machine Bunch Maker spoke with Ana Laura, Communications Program Manager at [facility] ([phone]) who confirmed that patient will be accepted at their facility today. Patients daughter Rola ([phone]) is made aware and is agreeable with discharge plan. Patient is alert and oriented x2. Patient is not able to plan for self-care at this time but is willing to accept care provided for him at the facility. Patient denies suicidal or homicidal ideation. Patient is aware and agreeable with discharge plans. Patient presents with appropriate mood and congruent affect. Patient will follow-up with Psychiatrist Dr. Robb and Program Director/Morning Show Host Dr. Gillis at [facility].
[2020-08-23] MEDS: CHOLECALCIFEROL 1,000 UNIT TABLET PO SCH (09:08)
[2020-08-23] MEDS: ASCORBIC ACID 500 MG TABLET PO SCH (09:09)
[2020-08-23] MEDS: MULTIVIT, IRON, MIN NO. 8, FA TABLET PO SCH (09:09)
[2020-08-23] MEDS: DIVALPROEX SPRINKLE 125 MG CAP.SPRINK PO SCH ×2 (09:09→13:27)
[2020-08-23] MEDS: DOCUSATE SODIUM 100 MG CAPSULE PO SCH (09:12)
[2020-08-23] MEDS: METFORMIN HCL 500 MG TABLET PO SCH (09:15)
--- NOTE | 2020-08-23 13:30 | NUR ---
Gps/Cmo & President- called [facility], report was given to Nurse Clemons .Becky JUNE was in to see patient this pm, TMS was done. Informed of pickup driver time 1500 .
== END 2020-08-23 15:41 | DRG 885 ==
LOC: ER 12:19 → GPS 16:57
PROVIDERS: ADMIT Psychiatry & Neurology Psychiatry; ATTEND Nurse Practitioner Acute Care
DX: F29 Unspecified psychosis not due to a substance or known physiological condition (principal); N39.0 Urinary tract infection, site not specified; F02.81 Dementia in other diseases classified elsewhere, unspecified severity, with behavioral disturbance; F23 Brief psychotic disorder; G30.9 Alzheimer's disease, unspecified; E11.9 Type 2 diabetes mellitus without complications; F31.9 Bipolar disorder, unspecified; F41.9 Anxiety disorder, unspecified; N40.1 Benign prostatic hyperplasia with lower urinary tract symptoms; Z79.84 Long term (current) use of oral hypoglycemic drugs; Z87.440 Personal history of urinary (tract) infections; R53.1 Weakness; F25.9 Schizoaffective disorder, unspecified; B96.20 Unspecified Escherichia coli [E. coli] as the cause of diseases classified elsewhere; Z20.822 Contact with and (suspected) exposure to COVID-19
CPT/HCPCS: 36415; 70030-TC; 70450; 71045; 83605; 84443; 85025; 85730; 87040; 87077; 87086; 93005; A4663; G0480; J1200; J1630; J2060; J3490; U0003